=== PATIENT | male | born 1985 | race Caucasian/White ===

== ENCOUNTER 2024-06-13 07:31 | Outpatient (CLI) | payer OTHER | END 2024-06-13 07:32 | disposition home or self-care (01) | LOC: CSHCT 07:31 | PROVIDERS: ATTEND Otolaryngology Plastic Surgery within the Head & Neck | DX: R09.81 Nasal congestion (principal); J34.1 Cyst and mucocele of nose and nasal sinus ==

== ENCOUNTER 2024-07-27 06:46 | Day surgery (SDC) | payer OTHER ==
[2024-07-26 10:04] VITALS: BMI 33.2
[2024-07-27] MEDS ORDERED: Mupirocin 2% Ointment 22 GM Tube ONE (07:53)
[2024-07-27] MEDS ORDERED: Lidocaine 1% w/Epinephrine 1:200K 30 ML VIAL ONE (07:53)
[2024-07-27] MEDS ORDERED: AFRIN NASAL MIST 15 ML BOT ONE ×2 (07:53→08:03)
[2024-07-27] MEDS ORDERED: Ondansetron PF 4 MG/2 ML Vial ONE (07:56)
[2024-07-27] MEDS ORDERED: Dexamethasone 20 MG/5 ML VIAL ONE (07:56)
[2024-07-27] MEDS ORDERED: Lidocaine 1% PF 5 ML VIAL ONE (07:56)
[2024-07-27] MEDS ORDERED: PROPOFOL 20 ML ONE (07:56)
[2024-07-27] MEDS ORDERED: fentaNYL 50 mcg/mL 1 mL Vial ONE ×2 (09:09→10:05)
[2024-07-27] MEDS ORDERED: Hydrocodone-Acetamin 15 ML UDCUP ONE (10:24)
== END 2024-07-27 10:50 | disposition home or self-care (01) ==
LOC: CSHSDC 06:46
PROVIDERS: ATTEND Otolaryngology Plastic Surgery within the Head & Neck
PROC: 09BM8ZZ Excision of Nasal Septum, Via Natural or Artificial Opening Endoscopic (ICD-10-PCS; principal; 2024-07-27)
PROC: 09TL7ZZ Resection of Nasal Turbinate, Via Natural or Artificial Opening (ICD-10-PCS; principal; 2024-07-27)
DX: J34.2 Deviated nasal septum (principal); J34.3 Hypertrophy of nasal turbinates; J34.89 Other specified disorders of nose and nasal sinuses; J32.8 Other chronic sinusitis
CPT/HCPCS: J1100; J2405; J2704; J3010